=== PATIENT | male | born 1970 | race Hispanic/Latino ===

== ENCOUNTER 2020-07-31 07:24 | Day surgery (SDC) | payer OTHER ==
[~2020-07-31 07:24] MED LIST: 0.9%NACL 1000ML 1,000 ML IV ONE; DICY20TA3 PO; HYDR25TA PO; LISI10TA24 PO
[2020-07-31 08:30] VITALS: BP 143/82
[2020-07-31] MEDS ORDERED: LIDOCAINE HCL 400MG/20ML VIAL ONE (08:47)
[2020-07-31] MEDS ORDERED: PROPOFOL 10 MG/ML 20ML VIAL IV ONE (08:47)
[2020-07-31 09:05] VITALS: BP 94/44
[2020-07-31 09:10] VITALS: BP 100/59
[2020-07-31 09:15] VITALS: BP 109/53
== END 2020-07-31 09:35 | disposition home or self-care (01) ==
LOC: DAH 07:24 → ENDO 07:24
PROVIDERS: ATTEND Internal Medicine Gastroenterology
DX: R93.3 Abnormal findings on diagnostic imaging of other parts of digestive tract (principal); K86.9 Disease of pancreas, unspecified; K57.10 Diverticulosis of small intestine without perforation or abscess without bleeding; I10 Essential (primary) hypertension; K29.70 Gastritis, unspecified, without bleeding; K20.90 Esophagitis, unspecified without bleeding; K44.9 Diaphragmatic hernia without obstruction or gangrene; K40.20 Bilateral inguinal hernia, without obstruction or gangrene, not specified as recurrent; J98.8 Other specified respiratory disorders; N40.0 Benign prostatic hyperplasia without lower urinary tract symptoms; Z79.899 Other long term (current) drug therapy; Z20.828 Contact with and (suspected) exposure to other viral communicable diseases
CPT/HCPCS: 43237; A4215; A4221; A4222; A4223; A4606; A4620; A4663; C9803; J2704; J3490; J7030; U0003